=== PATIENT | male | born 1990 | race African-American/Black ===

== ENCOUNTER 2024-09-09 20:36 | Emergency (ER) | payer MEDICAID ==
[~2024-09-09] VITALS: Ht 190.5 cm; Wt 123.5 kg
[2024-09-09 20:38] VITALS: O2SAT 98
[2024-09-09 20:57] VITALS: BP 155/101; PULSE 111; RESP 15; TEMP 97.9; O2SAT 97
== END 2024-09-09 22:32 | disposition left against medical advice (07) ==
LOC: ER 20:36
DX: M54.50 Low back pain, unspecified (principal); Z53.21 Procedure and treatment not carried out due to patient leaving prior to being seen by health care provider
CPT/HCPCS: A4606